=== PATIENT | female | born 1995 | race Two or more races ===

== ENCOUNTER 2021-04-19 12:17 | Emergency (ER) | payer OTHER ==
[2021-04-19] MEDS ORDERED: SODIUM CHLORIDE 0.9% 1,000 ML IV STA (13:53)
[2021-04-19 14:09] LABS: BASOPHILS % (AUTO) 0.3 %; EOSINOPHILS # (AUTO) 0.1 10^3/uL (0.0-0.7); EOSINOPHILS % (AUTO) 0.9 %; HGB - HEMOGLOBIN 13.3 g/dL (12.0-16.0); LYMPHOCYTES # (AUTO) 2.1 10^3/uL (1.5-3.5); LYMPHOCYTES % (AUTO) 22.6 %; MEAN CORPUSCULAR HGB CONC 34.1 g/dL (32.0-36.0); MEAN CORPUSCULAR VOLUME 90.9 fL (81.0-99.0); MEAN PLATELET VOLUME 10.8 fL (7.9-10.8); MONOCYTES # (AUTO) 0.6 10^3/uL (0.0-1.0); MONOCYTES % (AUTO) 5.9 %; NEUTROPHILS # (AUTO) 6.6 10^3/uL (1.5-6.6); PLT - PLATELET COUNT 243 10^3/uL (130-450); RED BLOOD COUNT 4.29 10^6/uL (4.20-5.40); RED CELL DISTRIBUTION WIDTH 11.8 % (12.0-15.0); WHITE BLOOD COUNT 9.4 x10^3/uL (4.8-10.8)
[2021-04-19 14:25] LABS: ALBUMIN 4.2 g/dL (3.2-5.5); ALBUMIN/GLOBULIN RATIO 1.4 (1.0-2.2); BILIRUBIN,TOTAL 0.7 mg/dL (0.2-1.0); CALCIUM 9.8 mg/dL (8.5-10.3); CREATININE 0.5 mg/dL (0.4-1.0); POTASSIUM 4.1 mmol/L (3.5-5.0); TOTAL PROTEIN 7.1 g/dL (6.7-8.2)
[2021-04-19 14:41] LABS: THYROID STIMULATING HORMONE 1.26 uIU/mL (0.34-5.60)
[2021-04-19 14:44] LABS: FREE T4 (FREE THYROXINE) 0.81 ng/dL (0.58-1.64)
--- NOTE | 2021-04-19 14:46 | CT Report ---
PROCEDURE: HEAD WO INDICATIONS: dizzy, off balance, vision changes TECHNIQUE: Noncontrast 4.5 mm thick angled axial sections acquired from the foramen magnum to the vertex. For r adiation dose reduction, the following was used: automated exposure control, adjustment of mA and/or kV according to patient size. COMPARISON: None. FINDINGS: Image quality: Excellent. CSF spaces: Basal cisterns are patent. No extra-axial fluid collections. Ventricles are normal in size and shape. Brain: No midline shift. No intracranial masses or hemorrhage. Lujan-white matter interface is norm al. Skull and face: Calvarium and visualized facial bones are intact, without suspicious lesions. Sinuses: Visualized sinuses and mastoids are clear. IMPRESSION: 1. No acute intracranial process. Reviewed by: Sachi Bartholomew MD on 04/19/2021 2:45 PM PDT Approved by: Sachi Bartholomew MD on 04/19/2021 2:45 PM PDT Station ID: [id number]
[2021-04-19] MEDS ORDERED: MECLIZINE 12.5 MG TABLET PO STA (14:49)
--- NOTE | 2021-04-19 14:49 | ED Physician Documentation ---
History of Present Illness - Stated complaint Stated Complaint: DIZZY, OFF BALANCE,WEAKNESS - Chief complaint Chief Complaint: Neuro - History obtained from History obtained from: Patient - History of Present Illness Timing: How many weeks ago (several weeks) Pain level max: 0 Pain level now: 0 - Additonal information Additional information: 25-year-old female presents to the emergency department with several weeks of feeling off balance occasionally. She feels like things are "moving away from her". Occasionally she feels like she is going to pass out. She states she feels like she is on a boat. Worse with movement and better with rest.. Has not taken anything for this. Occasionally has headaches. She states sometimes it feels like her eyes are "cross eyed". She cannot describe it any further than this. No recent illnesses. No trauma. Denies any possibility of . Review of Systems Ten Systems: 10 systems reviewed and negative Constitutional: denies: Fever, Chills Eyes: denies: Decreased vision, Photophobia Ears: denies: Ear pain Nose: denies: Rhinorrhea / runny nose, Congestion Cardiac: denies: Chest pain / pressure Respiratory: denies: Cough GI: denies: Abdominal Pain, Nausea, Vomiting, Diarrhea : denies: Dysuria Skin: denies: Rash Musculoskeletal: reports: Other. denies: Neck pain, Back pain Neurologic: denies: Headache PD PAST MEDICAL HISTORY - Past Medical History Past Medical History: No - Past Surgical History Past Surgical History: No - Present Medications Home Medications: Ambulatory Orders Medication Instructions Recorded Confirmed Meclizine HCl [Motion Sickness] 25 mg PO Q6H PRN #30 tablet 04/19/21 - Allergies Allergies/Adverse Reactions: Allergies Allergy/AdvReac Type Severity Reaction Status Date / Time No Known Drug Allergies Allergy Verified 04/19/21 12:42 - Social History Does the pt smoke?: No Smoking Status: Never smoker Does the pt drink ETOH?: Yes Does the pt have substance abuse?: No - Immunizations Immunizations are current?: Yes - POLST Patient has POLST: No PD ED PE NORMAL - Vitals Vital signs reviewed: Yes - General General: Alert and oriented X 3, No acute distress, Well developed/nourished - HEENT HEENT: PERRL, EOMI (No nystagmus), Ears normal, Moist mucous membranes, Pharynx benign - Neck Neck: Supple, no meningeal sign - Cardiac Cardiac: RRR, Strong equal pulses - Respiratory Respiratory: No respiratory distress, Clear bilaterally - Abdomen Abdomen: Soft, Non tender, Non distended - Back Back: No CVA TTP, No spinal TTP - Derm Derm: Warm and dry - Extremities Extremities: No edema, No calf tenderness / cord - Neuro Neuro: Alert and oriented X 3, gas flow regulator 2-12 intact, No motor deficit, No sensory deficit, Normal speech Eye Opening: Spontaneous Motor: Obeys Commands Verbal: Oriented GCS Score: 15 - Psych Psych: Normal mood, Normal affect Results - Vitals Vitals: Vital Signs - 24 hr 04/19/21 04/19/21 12:39 15:38 Temperature 36.8 C 36.6 C Heart Rate 72 85 Respiratory 16 16 Rate Blood Pressure 110/62 99/75 O2 Saturation 99 100 Oxygen O2 Source Room air - EKG (time done) 1416 Rate: Rate (enter#) (52) Rhythm: NSR [place]: Normal Intervals: Normal [place] QRS: Normal Ischemia: Normal ST segments - Labs Labs: Laboratory Tests 04/19/21 04/19/21 04/19/21 14:04 14:04 14:04 WBC 9.4 RBC 4.29 Hgb 13.3 Hct 39.0 MCV 90.9 MCH 31.0 MCHC 34.1 RDW 11.8 L Plt Count 243 MPV 10.8 Neut # (Auto) 6.6 Lymph # (Auto) 2.1 [place] # (Auto) 0.6 Eos # (Auto) 0.1 Baso # (Auto) 0.0 Absolute Nucleated RBC 0.00 Nucleated RBC % 0.0 Sodium 139 Potassium 4.1 Chloride 106 Carbon Dioxide 26 Anion Gap 7.0 BUN 8 Creatinine 0.5 Estimated GFR (MDRD) 148 Glucose 84 Calcium 9.8 Total Bilirubin 0.7 AST 14 ALT 16 Alkaline Phosphatase 40 L Total Protein 7.1 Albumin 4.2 Globulin 2.9 Albumin/Globulin Ratio 1.4 TSH 1.26 Free T4 0.81 - Rads (name of study) Head CT Radiology: Prelim report reviewed, EMP read contemporaneously (No acute intracranial abnormality), See rad report PD MEDICAL DECISION MAKING - ED course Complexity details: reviewed results, re-evaluated patient, considered differential, d/w patient ED course: Patient with what sounds like a vestibular issue. Given meclizine here and does feel better. No acute findings on testing or head CT. She would likely benefit from an ENT evaluation. We will trial her on meclizine for home. Patient counseled regarding signs and symptoms for which I believe and urgent re- evaluation would be necessary. Patient with good understanding of and agreement to plan and is comfortable going home at this time This document was made in part using voice recognition software. While efforts are made to proofread this document, sound alike and grammatical errors may occur. Patient is ambulating with a normal steady gait in the emergency department. Departure - Departure Disposition: Home, Self Care Clinical Impression: Vestibular neuritis Qualifiers: Laterality: unspecified laterality Qualified Code(s): H81.20 - Vestibular neuronitis, unspecified ear Condition: Good Instructions: ED Dizziness UKO Follow-Up: your,doctor in 1 week [Other] [facility] [Provider Group] [facility] [Provider Group] Prescriptions: Meclizine HCl [Motion Sickness] 25 mg PO Q6H PRN #30 tablet PRN Reason: Dizziness Comments: We will try you on meclizine. Your head CT and lab work are unremarkable today. Follow-up with ENT for further evaluation. This appears to be related to your vestibular system. Return if you worsen. Discharge Date/Time: 04/19/21 16:14
[2021-04-19 15:38] VITALS: BP 99/75
== END 2021-04-19 16:14 | disposition home or self-care (01) ==
LOC: ED 12:17
DX: H81.20 Vestibular neuronitis, unspecified ear (principal)
CPT/HCPCS: 36415; 70450; 80053; 84439; 84443; 85025; 93005; 99284; A9270

== ENCOUNTER 2021-08-09 12:48 | Outpatient (CLI) | payer OTHER ==
[2021-08-09] MEDS ORDERED: GADOBUTROL 7.5 MMOL/7.5 ML VIAL ONE (13:03)
[2021-08-09] MEDS ORDERED: GADOBUTROL 7.5 MMOL/7.5 ML VIAL IVP ONE (15:19)
--- NOTE | 2021-08-09 15:26 | MRI Report ---
PROCEDURE: Brain W/WO INDICATIONS: Dizziness, giddiness CONTRAST: IV CONTRAST: Gadavist ml: 7.2 TECHNIQUE: Noncontrast axial T1 spin echo, axial T2 fast spin echo, sagittal and axial FLAIR, coronal T2 fast sp in echo, axial gradient echo, axial diffusion and ADC through the brain. After the administration of contrast, axial and coronal T1 spin echo with fat saturation through the brain. COMPARISON: 04/19/[address] FINDINGS: Image quality: Excellent. CSF spaces: Basal cisterns are patent. No extra-axial fluid collections. Ventricles are normal in size and shape. Brain: No midline shift. No intracranial bleeds or masses. No abnormal intracranial enhancement. There is cerebral volume loss for age. There is periventricular white matter chronic small vessel is chemic change. The brainstem appears normal. Diffusion-weighted images demonstrate no acute ischemi c insults. No chronic ischemic insults. Normal intravascular flow voids are present. Skull and face: Calvarial marrow is normal in signal. Orbits appear normal. Sinuses: Sinuses and mastoids appear clear. IMPRESSION: Unremarkable MRI of the brain. Reviewed by: Diego Vyas MD on 08/09/2021 3:25 PM PDT Approved by: Diego Vyas MD on 08/09/2021 3:25 PM PDT Station ID: [id number]
== END 2021-08-09 12:49 | disposition home or self-care (01) ==
LOC: DI 12:48
PROVIDERS: ATTEND Student in an Organized Health Care Education/Training Program
DX: R42 Dizziness and giddiness (principal)
CPT/HCPCS: 70553; A9585

== ENCOUNTER 2022-02-22 02:14 | Emergency (ER) | payer OTHER ==
[2022-02-22] MEDS ORDERED: SODIUM CHLORIDE 0.9% 1,000 ML IV STA (02:39)
[2022-02-22] MEDS ORDERED: MECLIZINE 12.5 MG TABLET PO STA (02:39)
[2022-02-22 03:11] LABS: BASOPHILS % (AUTO) 0.2 %; EOSINOPHILS % (AUTO) 0.1 %; HCT - HEMATOCRIT 37.3 % (37.0-47.0); HGB - HEMOGLOBIN 12.8 g/dL (12.0-16.0); LYMPHOCYTES # (AUTO) 0.4 10^3/uL (1.5-3.5); LYMPHOCYTES % (AUTO) 4.1 %; MEAN CORPUSCULAR HEMOGLOBIN 30.2 pg (27.0-31.0); MEAN CORPUSCULAR HGB CONC 34.3 g/dL (32.0-36.0); MEAN PLATELET VOLUME 10.2 fL (7.9-10.8); MONOCYTES # (AUTO) 1.1 10^3/uL (0.0-1.0); MONOCYTES % (AUTO) 12.6 %; NEUTROPHILS % (AUTO) 82.8 %; PLT - PLATELET COUNT 242 10^3/uL (130-450); RED BLOOD COUNT 4.24 10^6/uL (4.20-5.40); RED CELL DISTRIBUTION WIDTH 11.7 % (12.0-15.0); WHITE BLOOD COUNT 8.5 x10^3/uL (4.8-10.8)
[2022-02-22 03:14] LABS: BILIRUBIN,URINE NEGATIVE (NEGATIVE); GLUCOSE, URINE (UA) NEGATIVE (NEGATIVE); KETONES,URINE (UA) NEGATIVE (NEGATIVE); LEUKOCYTE ESTERASE, URINE NEGATIVE (NEGATIVE); NITRITE,URINE NEGATIVE (NEGATIVE); OCCULT BLOOD,URINE SMALL (NEGATIVE); PH,URINE 7.5 PH (5.0-7.5); PROTEIN,URINE NEGATIVE (NEGATIVE); UROBILINOGEN,URINE 0.2 (NORMAL) E.U./dL (NORMAL)
[2022-02-22 03:16] LABS: CLARITY,URINE CLEAR (CLEAR); HCG UR QUAL NEGATIVE
[2022-02-22 03:21] LABS: ALBUMIN 4.3 g/dL (3.2-5.5); ALBUMIN/GLOBULIN RATIO 1.5 (1.0-2.2); BILIRUBIN,TOTAL 0.5 mg/dL (0.2-1.0); CALCIUM 9.1 mg/dL (8.5-10.3); CREATININE 0.5 mg/dL (0.4-1.0); POTASSIUM 3.5 mmol/L (3.5-5.0); TOTAL PROTEIN 7.1 g/dL (6.7-8.2)
[2022-02-22 03:23] LABS: BACTERIA,URINE Rare /HPF (None Seen); SQUAMOUS EPITHELIAL CELL,UR MOD Squamous (<= Few); WBC,URINE 0-3 /HPF (0-5)
[2022-02-22] MEDS ORDERED: KETOROLAC 30 MG/ML VIAL IVP STA (03:25)
[2022-02-22 04:17] VITALS: BP 108/69
--- NOTE | 2022-02-22 04:21 | ED Physician Documentation ---
History of Present Illness - Stated complaint Stated Complaint: BODY PX - Chief complaint Chief Complaint: General - History obtained from History obtained from: Patient - Additonal information Additional information: Patient is a 26-year-old female with a history significant for vertigo presenting for evaluation of dizziness, low-grade fevers and body aches since yesterday. Patient received a flu shot on Saturday morning. 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 Patient received a flu shot this week as required by work.She reports her dizziness feels like vertigo. She has meclizine at home but has not taken any. She denies vomiting or diarrhea but reports decreased oral intake today due to generalized aches and pains and malaise.She reports fever earlier at home. She denies cough, congestion, sore throat, chest pain or difficulty breathing. No abdominal pain, dysuria. She is currently on her menstrual cycle. Review of Systems Constitutional: reports: Fever Nose: denies: Congestion Throat: denies: Sore throat Cardiac: denies: Chest pain / pressure, Palpitations Respiratory: denies: Dyspnea, Cough GI: denies: Abdominal Pain, Vomiting, Diarrhea : reports: Vaginal bleeding (On menstrual cycle). denies: Dysuria, Hematuria Musculoskeletal: denies: Back pain Neurologic: reports: Generalized weakness, Other (Dizziness). denies: Headache, Head injury PD PAST MEDICAL HISTORY - Past Medical History Past Medical History: Yes Neuro: Motion sickness, Other Other Past Medical History: Vertigo - Past Surgical History Past Surgical History: Yes HEENT: Tonsil/Adenoidectomy - Present Medications Home Medications: Ambulatory Orders Medication Instructions Recorded Confirmed Meclizine HCl [Motion Sickness] 25 mg PO Q6H PRN #30 tablet 04/19/21 02/22/22 Lamotrigine [Lamictal (Blue)] 25 mg PO DAILY 02/22/22 02/22/22 methocarbamoL [Methocarbamol] 500 mg PO DAILY 02/22/22 02/22/22 - Allergies Allergies/Adverse Reactions: Allergies Allergy/AdvReac Type Severity Reaction Status Date / Time No Known Drug Allergies Allergy Verified 02/22/22 02:28 - Social History Does the pt smoke?: No Smoking Status: Never smoker Does the pt drink ETOH?: Yes Does the pt have substance abuse?: No - Immunizations Immunizations are current?: Yes - POLST Patient has POLST: No PD ED PE NORMAL - General General: Alert and oriented X 3, No acute distress, Well developed/nourished - HEENT HEENT: Atraumatic, PERRL, EOMI, Moist mucous membranes, Pharynx benign - Neck Neck: Supple, no meningeal sign, No bony TTP - Cardiac Cardiac: RRR, No murmur, Strong equal pulses - Respiratory Respiratory: No respiratory distress, Clear bilaterally - Abdomen Abdomen: Normal bowel sounds, Soft, Non tender - Back Back: No CVA TTP - Derm Derm: No rash - Extremities Extremities: No edema, No calf tenderness / cord, Other (Distal pulses intact) - Neuro Neuro: Alert and oriented X 3, translation director 2-12 intact, No motor deficit, Normal speech Eye Opening: Spontaneous Motor: Obeys Commands Verbal: Oriented GCS Score: 15 - Psych Psych: Normal mood Results - Vitals Vitals: Vital Signs - 24 hr 02/22/22 02/22/22 02/22/22 02:18 03:25 04:11 Temperature 36.8 C Heart Rate 115 H 90 87 Respiratory 20 26 H 22 Rate Blood Pressure 120/71 109/68 108/69 O2 Saturation 97 100 97 02/22/22 04:34 Temperature 37.3 C Heart Rate 85 Respiratory 22 Rate Blood Pressure 108/69 O2 Saturation 97 Oxygen O2 Source Room air - EKG (time done) 0259 Rate: Rate (enter#) (96) Rhythm: NSR [place]: Normal Ischemia: No: ST elevation c/w ischemia - Labs Labs: Laboratory Tests 02/22/22 02/22/22 02/22/22 03:05 03:05 03:10 WBC 8.5 RBC 4.24 Hgb 12.8 Hct 37.3 MCV 88.0 MCH 30.2 MCHC 34.3 RDW 11.7 L Plt Count 242 MPV 10.2 Neut # (Auto) 7.0 H Lymph # (Auto) 0.4 L [place] # (Auto) 1.1 H Eos # (Auto) 0.0 Baso # (Auto) 0.0 Absolute Nucleated RBC 0.00 Nucleated RBC % 0.0 Sodium 132 L Potassium 3.5 Chloride 102 Carbon Dioxide 20 L Anion Gap 10.0 BUN 5 L Creatinine 0.5 Estimated GFR (MDRD) 147 Glucose 112 H Calcium 9.1 Total Bilirubin 0.5 AST 18 ALT 22 Alkaline Phosphatase 42 Total Protein 7.1 Albumin 4.3 Globulin 2.8 Albumin/Globulin Ratio 1.5 Urine Color YELLOW Urine Clarity CLEAR Urine pH 7.5 Ur Specific [place] 1.015 Urine Protein NEGATIVE Urine Glucose (UA) NEGATIVE Urine Ketones NEGATIVE Urine Occult Blood SMALL H Urine Nitrite NEGATIVE Urine Bilirubin NEGATIVE Urine Urobilinogen 0.2 (NORMAL) Ur Leukocyte Esterase NEGATIVE Urine RBC 6-10 H Urine WBC 0-3 Ur Squamous Epith Cells MOD Squamous H Urine Bacteria Rare Ur Microscopic Review INDICATED Urine Culture Comments NOT INDICATED Urine HCG, Qual NEGATIVE PD MEDICAL DECISION MAKING - ED course Complexity details: reviewed results, re-evaluated patient, d/w patient ED course: Patient is a 26-year-old female presenting for evaluation of generalized body aches, low-grade fevers and dizziness. Recent flu shot. Mildly tachycardic on arrival but otherwise reassuring vitals. Tachycardia quickly improved prior to receiving IV fluids. COVID swab was obtained and results are pending. Labs were reviewed with mild hyponatremia.Suspect dehydration. Urinalysis is negative for . Small amount of blood which is likely due to patient being on her menstrual cycle. No flank pain or abdominal tenderness. Patient felt significantly better after receiving medications and IV fluids. Patient was counseled on continuing supportive management and aware of return precautions. Departure - Departure Disposition: 01 Home, Self Care Clinical Impression: Dizziness, Myalgia Condition: Stable Instructions: ED Dizziness UKO, ED Muscle Aching Comments: Estefany - You were evaluated for dizziness, Fevers and body aches.Your lab work showed mild dehydration and you were given IV fluids. You are also given medication to help with body aches And dizziness. Your symptoms could be related to a viral illness and a COVID test was done.The result is not yet back and we will notify you if there is an abnormal result.Please continue to use Motrin and Tylenol for any aches or pains. Please make sure to stay hydrated with drinking plenty of fluids and getting rest.If anytime you have any worsening symptoms such as worsening dizziness, headache, chest pain or difficulty breathing, abdominal pain or vomiting or with any concerns please return to the emergency department. You have a Covid test pending. You need to self quarantine until the result is done and negative. Do not leave your house. Do not get near anybody. The results should be done in 48 to 72 hours. We will call with a positive result, the fastest way to get a negative result for confirmation though is to go to the hospital website at [email or web address], click on the my [facility] tab and sign up for the patient portal. If any friends or family get sick and would like to have a Covid test done, but do not have signs or symptoms that would necessitate being hospitalized, there are multiple local options for Covid testing. [facility] keeps an updated list of testing and vaccination options at: [email or web address]. Forms: Activity restrictions Discharge Date/Time: 02/22/22 04:39
== END 2022-02-22 04:39 | disposition home or self-care (01) ==
LOC: ED 02:14
DX: R42 Dizziness and giddiness (principal); M79.10 Myalgia, unspecified site
CPT/HCPCS: 36415; 80053; 81001; 81025; 85025; 87635; 93005; 96374; 99282; 99284; A9270; 81003; 87086